=== PATIENT | female | born 1985 | race Caucasian/White ===

== ENCOUNTER 2016-07-30 02:19 | Emergency (ER) | payer OTHER ==
[2016-07-30 02:28] VITALS: TEMP 98.4; BMI 24.7
[2016-07-30 02:40] LABS: AUTOMATED EOSINOPHIL 4.3 % (0-5); AUTOMATED LYMPH 38.7 % (17-44); AUTOMATED MONOCYTE 7.8 % (3-10); AUTOMATED NEUTROPHIL 48.2 % (45-76); MPV 8.2 fL (7.4-10.4)
[2016-07-30 02:48] LABS: WBC/URINE 0-2 (0-5)
[2016-07-30 02:49] LABS: LEUKOCYTES/URINE NEG (NEGATIVE); NITRITE/URINE NEG (NEGATIVE); URINE OCCULT BLOOD NEG (NEG/TRACE)
[2016-07-30 02:53] LABS: BLOOD UREA NITROGEN 14 MG/DL (7-17); CALCIUM 8.8 MG/DL (8.4-10.2); CALCULATED OSMOLALITY 271 MOs/Kg (270-290); CHLORIDE 103 mEq/L (98-107); GLUCOSE 117 MG/DL (70-99); SODIUM LEVEL 140 mEq/L (137-146); TOTAL PROTEIN 7.6 G/DL (6.3-8.2)
[2016-07-30] MEDS ORDERED: ONDANSETRON HCL 4 MG/2 ML VIAL IV STA (04:25)
[2016-07-30] MEDS ORDERED: MORPHINE 4 MG/ML INJECTION IV ONE ×2 (04:25→05:56)
[2016-07-30] MEDS ORDERED: SODIUM CHLORIDE 0.9% 3 ML FLUSH FLUSH PRN (04:25)
--- NOTE | 2016-07-30 04:47 | EDPRACDOC ---
- General Information Information Source: Patient Mode Of Arrival: Car - History of Present Illness Onset: 1.5 HOUR Pain Location: Reports: LLQ Pain Context: Reports: Spontaneous Pain Severity: Severe Pain Quality: Reports: Aching, Sharp Pain Radiation: Reports: Back : No (DEBBY) Adult Abdominal History: Denies: Urolithiasis, Bowel Obstruction Female Abdominal History: Denies: Urolithiasis Female Associated Signs & Symptoms: Reports: Nausea. Denies: Dysuria, Fever Oral Intake: Normal <Roe Rabago - Last Filed: 07/30/16 04:46> <Jc Lobato - Last Filed: 07/30/16 09:25> - General Information Chief Complaint: Abdominal Pain Stated Complaint: LOWER ABD PAIN Time Seen by Provider: 07/30/16 04:22 Home Medications: Home Medications Azithromycin [Zithromax] 250 mg PO DAILY #6 tablet 04/09/16 Fexofenadine HCl [Jessica] 180 mg PO DAILY #30 tab 04/09/16 Methylprednisolone [Medrol] 4 mg PO DAILY #1 tab.ds.pk 04/09/16 Oxycodone HCl [Roxicodone] 5 mg PO Q4 PRN #10 tablet 07/30/16 Allergies/Adverse Reactions: Allergies Allergy/AdvReac Type Severity Reaction Status Date / Time No Known Allergies Allergy Verified 07/30/16 02:27 - History of Present Illness HPI: PT PRESENTS WITH SUDDEN ONSET SEVERE LLQ ABDOMINAL PAIN WHILE AT WORK. REPORTS MULTIPLE PRIOR OVARIAN CYSTS. (Roe Rabago) ED Past Medical History - History Reviewed Yes Nurses notes reviewed and agree except as marked - Patient Medical History Respiratory History: Reports: Asthma Psychological History: Denies: Depression - Social Medical History Smoking Status: Heavy tobacco smoker (5 or more cigarettes/day or daily pipe/ cigar) Lives With: Family Lives In: Home <Roe Rabago - Last Filed: 07/30/16 04:46> EDM Review of Systems - Review of Systems ROS Negative Except as Marked: Yes All systems reviewed and were negative except as marked Constitutional: negative: Fever Respiratory: negative: Shortness of Breath Cardiovascular: negative: Chest Pain Gastrointestinal: Nausea, Pain. negative: Diarrhea, Vomiting Genitourinary: negative: Dysuria, , Vaginal Discharge, Vaginal Bleeding <Roe Rabago - Last Filed: 07/30/16 04:46> - Physical Exam Constitutional: Alert Oriented to: Time, Person, Place - HEENT Head: negative: Deformity, Laceration Eye Exam: negative: Conjunctival Injection, Pale Conjunctiva Oropharynx: negative: Membranes Dry Nose: negative: Congestion, Discharge Neck: negative: Limited ROM - Respiratory/Cardiovascular Respiratory: Normal - CTA. negative: Accessory Muscle Use, Diminished, Tachypnea Cardiovascular: negative: Bradycardia, Tachycardia, Irregular - GI Auscultation: Normal Palpation: Normal Tenderness: Moderate, Guarding, LLQ, Suprapubic - Musculoskeletal Extremities: Radial Pulse (PALPABLE) - Integumentary Skin: Warm, Dry. negative: Rash - Neurologic Memory Impaired: Normal Motor Function: Normal Mood Description: Anxious Thought: Coherent Perception: Normal <Roe Rabago - Last Filed: 07/30/16 04:46> - Results 07/30/16 02:30 07/30/16 02:30 <Roe Rabago - Last Filed: 07/30/16 04:46> - Results 07/30/16 02:30 07/30/16 02:30 <Jc Lobato - Last Filed: 07/30/16 09:25> - Results WBC 12.8 xk/uL (3.8-10.8) H 07/30/16 02:30 RBC 4.46 xM/uL (4.20-5.40) 07/30/16 02:30 Hgb 13.2 g/dL (12.0-16.0) 07/30/16 02:30 Hct 40.1 % (36-47) 07/30/16 02:30 MCV 90 fL (81-99) 07/30/16 02:30 MCH 29.5 pg (27-32) 07/30/16 02:30 MCHC 32.9 g/dl (33-36) L 07/30/16 02:30 RDW 13.0 % (11.5-14.5) 07/30/16 02:30 Plt Count 300 xk/uL (130-400) 07/30/16 02:30 MPV 8.2 fL (7.4-10.4) 07/30/16 02:30 Neut % (Auto) 48.2 % (45-76) 07/30/16 02:30 Lymph % (Auto) 38.7 % (17-44) 07/30/16 02:30 Rolette % (Auto) 7.8 % (3-10) 07/30/16 02:30 Eos % (Auto) 4.3 % (0-5) 07/30/16 02:30 Baso % (Auto) 1.0 % (0-2) 07/30/16 02:30 Absolute Neuts (auto) 6.14 xk/uL (1.7-8.2) 07/30/16 02:30 Absolute Lymphs (auto) 4.86 xk/uL (0.65-4.75) H 07/30/16 02:30 Sodium 140 mEq/L (137-146) 07/30/16 02:30 Potassium 3.9 mEq/L (3.5-5.1) 07/30/16 02:30 Chloride 103 mEq/L (98-107) 07/30/16 02:30 Carbon Dioxide 25 mMOL/L (22-33) 07/30/16 02:30 Anion Gap 16 mEq/L (8-16) 07/30/16 02:30 BUN 14 MG/DL (7-17) 07/30/16 02:30 Creatinine 0.60 MG/DL (0.52-1.04) 07/30/16 02:30 Estimated GFR (MDRD) > 60 mL/min (>=60) 07/30/16 02:30 Glucose 117 MG/DL (70-99) H 07/30/16 02:30 Calculated Osmolality 271 MOs/Kg (270-290) 07/30/16 02:30 Calcium 8.8 MG/DL (8.4-10.2) 07/30/16 02:30 Total Bilirubin 0.7 MG/DL (0.2-1.3) 07/30/16 02:30 AST 37 IU/L (14-36) H 07/30/16 02:30 ALT 45 IU/L (9-52) 07/30/16 02:30 Alkaline Phosphatase 97 IU/L (38-126) 07/30/16 02:30 Total Protein 7.6 G/DL (6.3-8.2) 07/30/16 02:30 Albumin 4.5 G/DL (3.5-5.0) 07/30/16 02:30 Urine Color Yellow 07/30/16 02:30 Urine Clarity Sl hzy 07/30/16 02:30 Urine pH 7.0 (5.0-8.0) 07/30/16 02:30 Ur Specific Spiro 1.010 (1.003-1.035) 07/30/16 02:30 Urine Protein Neg (NEG/TRACE) 07/30/16 02:30 Urine Glucose (UA) Neg (NEGATIVE) 07/30/16 02:30 Urine Ketones Neg (NEGATIVE) 07/30/16 02:30 Urine Occult Blood Neg (NEG/TRACE) 07/30/16 02:30 Urine Nitrite Neg (NEGATIVE) 07/30/16 02:30 Urine Bilirubin Neg (NEGATIVE) 07/30/16 02:30 Urine Urobilinogen 0.2 MG/DL (0-1) 07/30/16 02:30 Ur Leukocyte Esterase Neg (NEGATIVE) 07/30/16 02:30 Urine WBC 0-2 (0-5) 07/30/16 02:30 Ur Epithelial Cells 3+ 07/30/16 02:30 Urine Mucus Mod (NEG/OCC) H 07/30/16 02:30 Urine Yeast Few (NONE) H 07/30/16 02:30 Urine Test Neg (NEGATIVE) 07/30/16 02:30 Lab Results 07/30/16 07/30/16 07/30/16 02:30 02:30 02:30 WBC 12.8 H RBC 4.46 Hgb 13.2 Hct 40.1 MCV 90 MCH 29.5 MCHC 32.9 L RDW 13.0 Plt Count 300 MPV 8.2 Neut % (Auto) 48.2 Lymph % (Auto) 38.7 Rolette % (Auto) 7.8 Eos % (Auto) 4.3 Baso % (Auto) 1.0 Absolute Neuts (auto) 6.14 Absolute Lymphs (auto) 4.86 H Sodium 140 Potassium 3.9 Chloride 103 Carbon Dioxide 25 Anion Gap 16 BUN 14 Creatinine 0.60 Estimated GFR (MDRD) > 60 Glucose 117 H Calculated Osmolality 271 Calcium 8.8 Total Bilirubin 0.7 AST 37 H ALT 45 Alkaline Phosphatase 97 Total Protein 7.6 Albumin 4.5 Urine Color Urine Clarity Urine pH Ur Specific Spiro Urine Protein Urine Glucose (UA) Urine Ketones Urine Occult Blood Urine Nitrite Urine Bilirubin Urine Urobilinogen Ur Leukocyte Esterase Urine WBC Ur Epithelial Cells Urine Mucus Urine Yeast Urine Test Neg 07/30/16 02:30 WBC RBC Hgb Hct MCV MCH MCHC RDW Plt Count MPV Neut % (Auto) Lymph % (Auto) Rolette % (Auto) Eos % (Auto) Baso % (Auto) Absolute Neuts (auto) Absolute Lymphs (auto) Sodium Potassium Chloride Carbon Dioxide Anion Gap BUN Creatinine Estimated GFR (MDRD) Glucose Calculated Osmolality Calcium Total Bilirubin AST ALT Alkaline Phosphatase Total Protein Albumin Urine Color Yellow Urine Clarity Sl hzy Urine pH 7.0 Ur Specific Spiro 1.010 Urine Protein Neg Urine Glucose (UA) Neg Urine Ketones Neg Urine Occult Blood Neg Urine Nitrite Neg Urine Bilirubin Neg Urine Urobilinogen 0.2 Ur Leukocyte Esterase Neg Urine WBC 0-2 Ur Epithelial Cells 3+ Urine Mucus Mod H Urine Yeast Few H Urine Test (Roe Rabago) (Jc Lobato) <Roe Rabago - Last Filed: 07/30/16 04:46> Decision Time to Discharge: 09:24 - Departure Disposition: Home Education/Counseling Given To: Patient Education/Counseling Given Regarding: Diagnosis <Jc Lobato - Last Filed: 07/30/16 09:25> - Departure Condition: Stable Final Diagnosis: Right ovarian cyst Instructions: Acute Abdominal Pain (ED), Ovarian Cyst (ED) Referrals: Binta Smith DO [Staff Physician] - One Week Prescriptions: Oxycodone HCl [Roxicodone] 5 mg PO Q4 PRN #10 tablet PRN Reason: Pain
[2016-07-30] MEDS ORDERED: SODIUM CHLORIDE 0.9% 3 ML FLUSH FLUSH SCH (06:00)
[2016-07-30] MEDS ORDERED: NS 1,000 ML IV ONE (06:08)
[2016-07-30] MEDS ORDERED: HYDROmorphone 1 MG INJECTION IV ONE (08:13)
--- NOTE | 2016-07-30 08:39 | DIRPT ---
CLINICAL DATA: Left lower quadrant pain EXAM: TRANSABDOMINAL AND TRANSVAGINAL ULTRASOUND OF PELVIS TECHNIQUE: Both transabdominal and transvaginal ultrasound examinations of the pelvis were performed. Transabdominal technique was performed for global imaging of the pelvis including uterus, ovaries, adnexal regions, and pelvic cul-de-sac. It was necessary to proceed with endovaginal exam following the transabdominal exam to visualize the ovaries. COMPARISON: 07/11/2014 FINDINGS: Uterus Measurements: 7.3 x 3.8 x 6.5 cm.. No fibroids or other mass visualized. Endometrium Thickness: 3 mm. An IUD is noted in place. Right ovary Measurements: 3.1 x 2.6 x 2.3 cm.. 1.5 cm right ovarian cyst is noted. This has decreased in size from the prior exam. Normal vascularity of the right ovary is noted. Left ovary Measurements: 2.2 x 2.1 x 2.2 cm.. No acute abnormality is noted. Normal vascularity is seen. Other findings Minimal free pelvic fluid is noted. IMPRESSION: Right ovarian cyst which is decreased in size from the prior exam. No other focal abnormality is seen. Electronically Signed By: Shukri Bustillo M.D. On: 07/30/2016 08:36
[2016-07-30 09:11] VITALS: BP 110/68; PULSE 83
== END 2016-07-30 09:35 | disposition home or self-care (01) ==
LOC: ED 02:19
DX: N83.201 Unspecified ovarian cyst, right side (principal)
CPT/HCPCS: 36415; 76830; 76856; 80053; 81001; 81025; 85025; 93975; 96361; 96374; 96375; 96376; 99284; J1170; J2270; J2405